=== PATIENT | male | born 1975 | race Hispanic/Latino ===

== ENCOUNTER 2018-02-07 13:53 | Emergency (ER) | payer MEDICARE, OTHER, SELFPAY ==
[2018-02-07] MEDS ORDERED: Sodium Chloride 0.9% 1,000 ML ONE (14:10)
[2018-02-07 14:19] LABS: #Basophils 0.1 thou/uL (0.0-0.2); #Eosinphils 0.2 thou/uL (0.0-0.7); #Lymphocytes 3.3 thou/uL (1.20-3.40); #Monocytes 0.7 thou/uL (0.11-0.59); %Basophils 1.6 % (0.0-1.0); %Eosinophils 2.6 % (0.0-10.0); %Lymphocytes 35.6 % (21.0-51.0); %Monocytes 7.1 % (0.0-10.0); %Neutrophils 53.2 % (42.0-75.0); Hemoglobin 15.8 g/dL (14.0-18.0); Mean Corpuscular HGB CONC 32.2 g/dL (32.0-36.0); Mean Corpuscular Hemoglobin 26.8 pg (27.0-31.0); Mean Corpuscular Volume 83.2 fl (80.0-94.0); Mean Platelet Volume 9.5 fL (7.4-10.4); Platelet Count 223 thou/uL (130-400); RBC Distribution Width 12.3 % (11.5-14.5); White Blood Cell (WBC) Count 9.4 thou/uL (4.8-10.8)
[2018-02-07 14:32] LABS: ALT (SGPT) 29 U/L (8-55); AST (SGOT) 23 U/L (5-34); Albumin 4.4 g/dL (3.5-5.0); Alkaline Phosphatase 144 U/L (40-150); Anion Gap 17 mmol/L (10-20); BUN (Urea Nitrogen) 16 mg/dL (8.9-20.6); Bilirubin, Total 0.4 mg/dL (0.2-1.2); CK (CPK) 159 U/L (30-200); Calc. Creatinine Clearance 0 mL/min (70-130); Calcium 9.2 mg/dL (7.8-10.44); Carbon Dioxide 23 mmol/L (22-29); Chloride 106 mmol/L (98-107); Estimated GFR-MDRD 77; Globulin 3.3 g/dL (2.4-3.5); Glucose 145 mg/dL (70-105); Protein, Total 7.7 g/dL (6.0-8.3); Sodium 143 mmol/L (136-145)
[2018-02-07 14:34] LABS: CKMB 3.4 ng/mL (0-6.6); Troponin I Less than 0.010 ng/mL (< 0.028)
[2018-02-07] MEDS ORDERED: Ondansetron ODT 4 MG TAB ONE (14:36)
[2018-02-07] MEDS ORDERED: Meclizine HCl 25 MG TAB ONE (14:56)
--- NOTE | 2018-02-07 15:04 | CT ---
NONCONTRAST HEAD CT: Date: 02/07/18 HISTORY: Status post surgery. Patient is having dizziness and vomiting. Patient feels that the room is [facility]. COMPARISON: 11/30/08. CORRELATION: Brain MRI dated 01/20/15. TECHNIQUE: A noncontrast head CT is performed from the skull base to the skull vertex. FINDINGS: Stable postsurgical changes. 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 Stable configuration ex vacuo dilatation of the frontal hor n of left lateral ventricle. Stable malacic change involving the left frontal lobe. No significant in terval change. No acute hemorrhage or midline shift. Basilar cisterns are patent. Adequate aeration o f the sinuses and mastoid air cells. IMPRESSION: 1. Stable postsurgical changes. 2. Stable intraventricular mass, compatible with known central neurocytoma. POS: [facility]
[2018-02-07 15:08] LABS: Bilirubin Negative (Negative); Blood, Urine Negative (Negative); Clarity Clear (Clear); Glucose, Urine (Dipstick) Negative (Negative); Leukocyte Negative (Negative); Nitrite Negative (Negative); Protein, Urine (Dipstick) > or equal to 300 mg/dL (Neg-Trace); Specific Gravity, Urine 1.025 (1.005-1.030); Urobilinogen 0.2 mg/dL (0.2-1.0)
[2018-02-07 15:37] LABS: RBC/HPF 0-3 HPF (0-3); Squamous Epithelial 0-3 HPF (0-3); WBC/HPF 0-3 HPF (0-3)
[2018-02-07] MEDS ORDERED: Ondansetron HCl/PF 4 MG/2 ML Vial ONE (16:05)
== END 2018-02-07 17:38 | disposition short-term general hospital (02) ==
LOC: NAV ERS 13:53
DX: R42 Dizziness and giddiness (principal); I10 Essential (primary) hypertension
CPT/HCPCS: 70450; 80053; 81003; 81015; 82550; 82553; 84484; 85025; 93005; 96361; 96374; J2405; J7050; Q0162